=== PATIENT | male | born 1990 | race Caucasian/White ===

== ENCOUNTER 2020-08-18 21:06 | Emergency (ER) | payer OTHER ==
[~2020-08-18 21:06] MED LIST: AMOXICILLIN500 MG PO; AUGMENTIN 875-1 EACH PO; BACLOFEN 20MG T20 MG PO; BENTYL10 MG PO; ETODOLAC500 MG PO; FLEXERIL10 MG PO; IBU800 MG PO; IBUPROFEN800 MG PO; MEDROL 4MG DOSEP4 MG PO; MOTRIN600 MG PO; NAPROXEN500 MG PO; NORCO 5-325 TA1 EACH PO; ROBAXIN750 MG PO; TRAMADOL HCL50 MG PO; VOLTAREN **OUT75 MG PO; ZOFRAN4 MG PO; ZPAK PO
== END 2020-08-18 22:55 | disposition left against medical advice (07) ==
LOC: FER 21:06
DX: R22.41 Localized swelling, mass and lump, right lower limb (principal); Z53.21 Procedure and treatment not carried out due to patient leaving prior to being seen by health care provider

== ENCOUNTER 2021-12-05 18:19 | Emergency (ER) | payer OTHER ==
[2021-12-06] MEDS ORDERED: PRILOSEC20 MG PO (09:27)
== END 2021-12-05 22:40 | disposition left against medical advice (07) ==
LOC: FER 18:19
DX: M54.9 Dorsalgia, unspecified (principal); R10.9 Unspecified abdominal pain; Z53.21 Procedure and treatment not carried out due to patient leaving prior to being seen by health care provider
CPT/HCPCS: 93005

== ENCOUNTER 2021-12-06 07:33 | Emergency (ER) | payer OTHER ==
[2021-12-06 08:18] LABS: BASOPHIL 0.5 % (0-2); EOSINOPHIL 0.8 % (0-5); HCT 47.6 % (42.0-52.0); HGB 16.7 g/dl (13.2-18.0); LYMPHOCYTE 24.7 % (15-48); MCH 28.4 pg (25.0-31.0); MCHC 35.1 g/dL (32.0-36.0); MCV 81.1 fL (78.0-100.0); MONOCYTE 7.2 % (0-12); MPV 9.6 fL (6.0-9.5); NEUTROPHIL 66.3 % (41-80); NRBC 0; PLT 244 K/uL (150-400); RBC 5.87 M/uL (4.70-6.00); RDW 12.4 % (11.5-14.0); WBC 5.9 K/uL (4.0-10.5)
[2021-12-06 08:24] LABS: BILIRUBIN NEGATIVE (NEGATIVE); BLOOD NEGATIVE Ery/uL (NEGATIVE); CLARITY CLEAR (CLEAR); COLOR YELLOW (YELLOW); GLUCOSE (U) NORMAL (NORMAL); LEUKOCYTES NEGATIVE Leu/uL (NEGATIVE); NITRITE NEGATIVE (NEGATIVE); PROTEIN NEGATIVE (NEGATIVE); SPECIFIC GRAVITY 1.025 (1.001-1.030)
[2021-12-06 08:26] LABS: ALBUMIN 4.3 g/dL (3.4-5.0); BILIRUBIN - TOTAL 0.7 mg/dL (0.2-1.0); BUN/CREAT RATIO (CALC) 15.8 RATIO; CREATININE 1.52 mg/dL (0.67-1.17); GLOBULIN (CALCULATION) 3.9 g/dL; POTASSIUM 3.4 mmol/L (3.5-5.1); TOTAL PROTEIN 8.2 g/dL (6.4-8.2)
[2021-12-06 08:29] LABS: AMPHETAMINES NEGATIVE (NEGATIVE); BARBITURATES NEGATIVE (NEGATIVE); ECSTASY (MDMA) NEGATIVE (NEGATIVE); MARIJUANA (THC) POSITIVE (NEGATIVE); METHADONE NEGATIVE (NEGATIVE); OPIATES NEGATIVE (NEGATIVE); OXYCODONE NEGATIVE (NEGATIVE)
[2021-12-06] MEDS ORDERED: PRILOSEC20 MG PO (09:27)
== END 2021-12-06 10:06 | disposition home or self-care (01) ==
LOC: FER 07:33
PROVIDERS: Emergency Medicine
DX: K25.9 Gastric ulcer, unspecified as acute or chronic, without hemorrhage or perforation (principal); N17.9 Acute kidney failure, unspecified; I10 Essential (primary) hypertension; Z79.899 Other long term (current) drug therapy
CPT/HCPCS: 36415; 80053; 80305; 81003; 83690; 85025; C9113; J7030